=== PATIENT | male | born 1965 | race Caucasian/White ===

== ENCOUNTER → 2024-09-21 17:37 | Outpatient (REF) | payer OTHER, SELFPAY | LOC: MRI 3T 17:37 | PROVIDERS: ATTENDING PHYSICIAN Surgery; FAMILY PHYSICIAN Family Medicine | DX: R97.20 Elevated prostate specific antigen [PSA] (principal) | CPT/HCPCS: 72197; A9575 ==

== ENCOUNTER → 2025-03-15 09:01 | Outpatient (REF) | payer OTHER, SELFPAY | LOC: RCS 09:01 | PROVIDERS: ATTENDING PHYSICIAN Family Medicine | DX: R00.1 Bradycardia, unspecified (principal); R94.31 Abnormal electrocardiogram [ECG] [EKG] | CPT/HCPCS: 71046; 93017 ==

== ENCOUNTER → 2025-03-17 06:45 | Outpatient (REF) | payer OTHER, SELFPAY | LOC: RSP 06:45 | PROVIDERS: ATTENDING PHYSICIAN Family Medicine | DX: E78.2 Mixed hyperlipidemia (principal); J45.41 Moderate persistent asthma with (acute) exacerbation | CPT/HCPCS: 94010 ==

== ENCOUNTER → 2025-03-26 07:05 | Outpatient (REF) | payer OTHER, SELFPAY | LOC: RCS 07:05 | PROVIDERS: ATTENDING PHYSICIAN Family Medicine | DX: R00.1 Bradycardia, unspecified (principal); R94.31 Abnormal electrocardiogram [ECG] [EKG] | CPT/HCPCS: 93306 ==